=== PATIENT | male | born 1980 | race Caucasian/White ===

== ENCOUNTER → 2017-03-15 | Outpatient (CLI) | payer BC ==
[2015-10-28 13:30] VITALS: BP 130/77
[~2017-03-15] MED LIST: ASPI325T11 PO; ATOR20TA58 PO; CLOP75TA PO; CYCL10TA2 PO; FLUT16SP NS; LISI10TA2 PO; METF500T4 PO; METO25TA4 PO; OMEG1CAP6 PO; PRAS5TAB3 PO; SIMV20TA3 PO
--- NOTE | 2017-03-15 15:53 | CARD ---
APPROVED REPORT INDICATION Cardiac Disease: CAD Reason : Patient complained of shortness of breath PROCEDURE The patient underwent an Exercise Stress Test using the Stanislav Protocol. Blood pressure, heart rate, a nd EKG were monitored. An Echocardiogram was performed by paint prep technician in four stages in quad fashion. At peak stress four se lected images were obtained and placed side by side with resting images for comparison. STRESS ECHO FINDINGS The resting Echocardiogram showed normal left ventricular contractility with an estimated Ejection Fr action of about 60 %. Normal augmentation of myocardial wall segments using a 16 segment model. Test Type: Exercise Stress Nurse/Tech: Opal Townsend R.N. Test Indications: cad Cardiac History and Allergies: cad, hx of stents 2016 Medications: see ehr Medical History: see ehr Resting ECG: sr Resting Heart Rate: 75 bpm Resting Blood Pressure: 151/83mmHg Pretest Chest Pain: No chest pain Nurse/Tech Notes lungs cta, heart tones regular Stress Symptoms No chest pain or symptoms.Fatigue POST EXERCISE Reason for Termination: Reached target heart rate Target HR: Yes Max HR: 163 bpm 60% of Maximum Predicted HR: 182 bpm Exercise duration: 10:01 min:sec, 4 Stage Exercise capacity: 12.8METs Max Blood Pressure: 170/92mmHg Blood Pressure response to exercise: Normal blood pressure response during stress. Chest Pain: No. Arrhythmia: Yes. [address] Change: No. STRESS ECG Stress EKG shows no significant changes. Preliminary Notification Critical Value: No <Conclusion> Low normal EF at rest (50%), normal augmentation with exercise with an EF > 70% Normal wall motion at rest and with stress. No EKG evidence of ischemia with excellent functional capacity of 12.8 Mets.
== END | disposition home or self-care (01) ==
LOC: ECHO 09:00
PROVIDERS: ATTEND Internal Medicine Cardiovascular Disease
DX: I25.10 Atherosclerotic heart disease of native coronary artery without angina pectoris (principal); R06.02 Shortness of breath
CPT/HCPCS: 93017; 93350